=== PATIENT | male | born 1980 | race Caucasian/White ===

== ENCOUNTER → 2017-01-12 | Outpatient (CLI) | payer MEDICAID ==
[~2017-01-12] MED LIST: HYDR-3240 PO; IBUP200C5 PO
== END | disposition home or self-care (01) ==
LOC: CFH 15:27
PROVIDERS: ATTEND Nurse Practitioner Family
DX: E04.2 Nontoxic multinodular goiter (principal)
CPT/HCPCS: 76536

== ENCOUNTER → 2017-06-29 | Outpatient (CLI) | payer MEDICAID | END | disposition home or self-care (01) | LOC: CFH 15:27 | PROVIDERS: ATTEND Nurse Practitioner Family | DX: E04.2 Nontoxic multinodular goiter (principal) | CPT/HCPCS: 76536 ==